=== PATIENT | female | born 1950 | race Caucasian/White ===

== ENCOUNTER → 2016-12-29 | Outpatient (CLI) | payer MEDICARE | END | disposition home or self-care (01) | LOC: GMAB 10:12 | PROVIDERS: ATTEND Family Medicine | DX: I10 Essential (primary) hypertension (principal); E83.52 Hypercalcemia ==

== ENCOUNTER → 2017-02-11 | Outpatient (CLI) | payer MEDICARE ==
--- NOTE | 2017-02-12 11:54 | NM ---
Systolic EXAM DESCRIPTION: Parathyroid Scan CLINICAL HISTORY: 66 years, Female, E21.3 hyperparathyroidism COMPARISON: None. FINDINGS: Patient injected with 20 mCi technetium 99m labeled sestamibi. Anterior images are obtained from area of the lower face to lower chest. On the initial films following radionuclide injection there is normal labeling of salivary thyroid glands. Some cardiac and liver activity noted. On delayed images there is some washout of the thyroid activity without discrete nodule demonstrated. IMPRESSION: No findings suspicious for parathyroid adenoma Electronically signed by: Cody Botello MD 02/12/2017 11:53 AM CDT
== END ==
LOC: NM 07:25
PROVIDERS: ATTEND Family Medicine
DX: E21.3 Hyperparathyroidism, unspecified (principal)

== ENCOUNTER → 2017-02-23 | Outpatient (CLI) | payer MEDICARE ==
--- NOTE | 2017-02-23 14:52 | MAM ---
History: Well woman exam. Date of exam: 02/23/2017 Services provided: Bilateral full field digital screening mammography. CAD, the images were reviewed with R2 computer aided detection. FINDINGS: Glandular tissue is near completely fatty involuted. Comparison with 2008 exam. No dominant mass, architectural distortion or clustered microcalcification. IMPRESSION: Benign exam Recommendation: Routine annual mammography BIRAD CATEGORY: 2 BENIGN Electronically signed by: Nadeen Whitfield MD 02/23/2017 2:52 PM CDT
== END | disposition home or self-care (01) ==
LOC: MAMMO 10:29
PROVIDERS: ATTEND Family Medicine
DX: Z12.31 Encounter for screening mammogram for malignant neoplasm of breast (principal)

== ENCOUNTER → 2017-03-09 | Outpatient (CLI) | payer MEDICARE | END | disposition home or self-care (01) | LOC: GMAB 09:09 | PROVIDERS: ATTEND Family Medicine | DX: E21.3 Hyperparathyroidism, unspecified (principal) ==

== ENCOUNTER → 2018-01-04 | Outpatient (CLI) | payer MEDICARE | LOC: GMAB 10:35 | PROVIDERS: ATTEND Family Medicine | DX: I10 Essential (primary) hypertension (principal) ==

== ENCOUNTER → 2018-09-14 | Outpatient (CLI) | payer MEDICARE | LOC: GMAE 11:01 | PROVIDERS: ATTEND Family Medicine | DX: E61.2 Magnesium deficiency (principal) ==

== ENCOUNTER → 2019-01-11 | Outpatient (CLI) | payer MEDICARE | LOC: GMAE 11:03 | PROVIDERS: ATTEND Family Medicine | DX: I10 Essential (primary) hypertension (principal) ==

== ENCOUNTER → 2019-09-15 | Outpatient (CLI) | payer MEDICARE | LOC: GMAF 19:38 | PROVIDERS: ATTEND Nurse Practitioner Family | DX: N39.0 Urinary tract infection, site not specified (principal); M54.5 Low back pain ==

== ENCOUNTER → 2020-01-24 | Outpatient (CLI) | payer MEDICARE | LOC: GMAE 11:38 | PROVIDERS: ATTEND Family Medicine | DX: E21.3 Hyperparathyroidism, unspecified (principal); E11.9 Type 2 diabetes mellitus without complications; I10 Essential (primary) hypertension ==

== ENCOUNTER 2020-02-18 17:04 | Emergency (ER) | payer MEDICARE ==
[2020-02-18] MEDS ORDERED: SULFA/TRIMETH 800/160 (DS) TAB 1 EA TAB PO ONE (17:15)
--- NOTE | 2020-02-18 17:17 | ED.PDOC ---
History of Present Illness - General Chief Complaint: Upper Extremity Injury Time Seen by Provider: 02/18/20 17:11 Source: patient Exam Limitations: no limitations - History of Present Illness Initial Comments: The patient is a 69-year-old female presents emergency room secondary to having obtained a skin tear to the dorsal aspect of the second digit over the first phalanx of the left hand yesterday by accidentally hitting it on a door jam. The patient has put a Band-Aid on it and the skin flap has stayed in place. No limitation of motion and no change in sensation. No deformity. Timing/Duration: 24 hours Severity: mild Improving Factors: nothing Worsening Factors: nothing Associated Symptoms: denies symptoms Allergies/Adverse Reactions: Allergies NO KNOWN ALLERGY Allergy (Verified 10/13/12 13:33) Home Medications: Ambulatory Orders Sulfa/Trimeth 800/160 (Ds) Tab [Bactrim DS Tab] 1 ea PO DAILY #5 tab 02/18/20 Review of Systems - Review of Systems Constitutional: States: no symptoms reported EENTM: States: no symptoms reported Respiratory: States: no symptoms reported Cardiology: States: no symptoms reported Gastrointestinal/Abdominal: States: no symptoms reported Genitourinary: States: no symptoms reported Musculoskeletal: States: no symptoms reported Skin: States: see HPI Neurological: States: no symptoms reported Endocrine: States: no symptoms reported All other Systems: No Change from Baseline Physical Exam - Physical Exam General Appearance: Alert, Comfortable, No apparent distress Eye Exam: bilateral normal Ears, Nose, Throat: hearing grossly normal Respiratory: no respiratory distress, no accessory muscle use Cardiovascular/Chest: normal peripheral pulses, no edema Peripheral Pulses: radial,right: 2+, radial,left: 2+ Rectal Exam: deferred Extremity: normal range of motion, normal capillary refill Neurologic: surgical processor II-XII nml as tested, alert, normal mood/affect, oriented x 3, other - Sensation preserved distally in the finger Skin Exam: normal color, other - The skin tear is U-shaped and the total length of the you is probably 1.2 inches Progress - Progress Progress: 02/18/20 17:17 The patient is a 69-year-old female presented emergency room secondary to a superficial skin tear to the dorsal aspect of the second digit of the left hand that she obtained yesterday. The wound was cleaned and Steri-Strips were applied. The patient was given a dose of Bactrim prophylactically and will be placed on 5 days of Bactrim daily to keep infection off. Steri-Strips will come off on their own. Monitor for any evidence of infection. No evidence of any neurovascular or mechanical compromise. Keep routine follow-up with primary care doctor. maye shaikh [id number] Departure - Departure Clinical Impression: Skin tear of hand without complication Qualifiers: Encounter type: initial encounter Laterality: left Qualified Code(s): S61.412A - Laceration without foreign body of left hand, initial encounter Disposition: Discharge to Home or Self Care Condition: Fair Departure Forms: ED Discharge - Pt. Copy, Patient Portal Self Enrollment Instructions: DI for Hand Injury Diet: regular diet Activity: increase activity as tolerated Referrals: JAYCE WOODRUFF MD [Primary Care Provider] - 1-2 Weeks Prescriptions: Sulfa/Trimeth 800/160 (Ds) Tab [Bactrim DS Tab] 1 ea PO DAILY #5 tab Home Medications: Ambulatory Orders Sulfa/Trimeth 800/160 (Ds) Tab [Bactrim DS Tab] 1 ea PO DAILY #5 tab 02/18/20 Additional Instructions: The patient is a 69-year-old female presented emergency room secondary to a superficial skin tear to the dorsal aspect of the second digit of the left hand that she obtained yesterday. The wound was cleaned and Steri-Strips were applied. The patient was given a dose of Bactrim prophylactically and will be placed on 5 days of Bactrim daily to keep infection off. Steri-Strips will come off on their own. Monitor for any evidence of infection. No evidence of any neurovascular or mechanical compromise. Keep routine follow-up with primary care doctor.
[2020-02-18 17:19] VITALS: O2SAT 99
[2020-02-18] MEDS ORDERED: TETANUS,DIPHTHERIA,PERTUSSIS 1 EA SYG IM ONE (17:20)
[2020-02-18 17:57] VITALS: BP 106/70; TEMP 96.9
== END 2020-02-18 17:58 | disposition home or self-care (01) ==
LOC: ER 17:04
DX: S61.412A Laceration without foreign body of left hand, initial encounter (principal); W22.8XXA Striking against or struck by other objects, initial encounter; Y92.9 Unspecified place or not applicable

== ENCOUNTER → 2020-05-17 | Outpatient (CLI) | payer MEDICARE ==
--- NOTE | 2020-05-17 13:04 | RAD ---
EXAM DESCRIPTION: Shoulder,Right 2 or More Views CLINICAL HISTORY: PAIN IN RIGHT COMPARISON: None Available. TECHNIQUE: Four x-ray views of the right shoulder. FINDINGS: There is adequate internal and external rotation. Normal glenohumeral alignment on transverse scapular Y view. Normal glenohumeral alignment on transaxillary view. There is no fracture or dislocation. Advanced degenerative arthrosis of the glenohumeral joint with large osteophyte of the medial humeral head neck junction. Medial humeral head is flattened with sclerosis and subchondral cyst formation. Sclerosis with erosion of the glenoid surface. No focal bone lesion. IMPRESSION: Advanced degenerative osteoarthrosis of the right shoulder. Electronically signed by: Dominick Uriarte MD 05/17/2020 1:02 PM CDT
--- NOTE | 2020-05-17 13:05 | RAD ---
EXAM DESCRIPTION: Shoulder x-ray Left 4 Views CLINICAL HISTORY: PAIN IN LEFT SHOULDER COMPARISON: None Available. TECHNIQUE: Four x-ray views of the left shoulder. FINDINGS: There is limited internal and external rotation. Normal glenohumeral alignment on transscapular Y view and transaxillary view There is no fracture or dislocation. Narrowed AC joint. Advanced degenerative osteoarthrosis with eroded appearance of the glenoid surface with sclerosis and subchondral cyst formation and marginal osteophyte formation. Flattened medial left humeral head with subchondral sclerosis and irregular surface with prominent spur at the left humeral head neck junction. No focal bone lesion. IMPRESSION: Advanced degenerative osteoarthrosis of the left shoulder. Electronically signed by: Dominick Uriarte MD 05/17/2020 1:03 PM CDT
== END ==
LOC: RAD 07:47
PROVIDERS: ATTEND Orthopaedic Surgery
DX: M19.011 Primary osteoarthritis, right shoulder (principal); M19.012 Primary osteoarthritis, left shoulder

== ENCOUNTER → 2020-05-21 | Outpatient (CLI) | payer MEDICARE ==
--- NOTE | 2020-05-21 20:17 | CT ---
EXAM DESCRIPTION: Upper Extremity CLINICAL HISTORY: 69 years Female, LOCALIZED PRIMARY OSTEOARTHRITIS OF THE SHOULDER REGION RIGHT TECHNIQUE: This exam was performed according to our departmental dose-optimization program, which includes automated exposure control, adjustment of the mA and/or kV according to patient size and/or use of iterative reconstruction technique. COMPARISON: May 17, 2020 FINDINGS: Calcified granulomas in the right lung. No suspicious pulmonary nodule or focal consolidation. The mediastinum is unremarkable. No axillary adenopathy. No suspicious mass or fluid collection. Moderate to severe acromioclavicular osteoarthritis. Severe glenohumeral osteoarthritis with obliteration of the joint space, subchondral sclerosis and cyst formation. Bulky inferiorly projecting humeral head osteophytes. Subcortical cysts in the posterolateral humeral head No acute fracture or dislocation. No focal soft tissue swelling. Moderate glenohumeral joint effusion. Mild fatty atrophy of the infraspinatus and subscapularis. IMPRESSION: Advanced degenerative changes in the right shoulder. No acute osseous abnormality. Electronically signed by: Torsten Mendez MD 05/21/2020 6:10 PM CDT
== END ==
LOC: CT 11:01
PROVIDERS: ATTEND Orthopaedic Surgery
DX: M19.011 Primary osteoarthritis, right shoulder (principal)

== ENCOUNTER → 2020-06-18 | Outpatient (CLI) | payer MEDICARE | LOC: LAB 09:49 | PROVIDERS: ATTEND Orthopaedic Surgery | DX: Z22.321 Carrier or suspected carrier of Methicillin susceptible Staphylococcus aureus (principal) ==

== ENCOUNTER 2020-07-16 05:18 | Inpatient (IN) | payer MEDICARE ==
[2020-07-16] MEDS ORDERED: SODIUM CHLORIDE 0.9% 100ML 100 ML IVPB ONE (05:45)
[2020-07-16] MEDS ORDERED: SODIUM CHL 0.9% 100ML MINI-BAG 100 ML IVPB ONE (05:45)
[2020-07-16] MEDS ORDERED: SODIUM CHLORIDE 0.9% 250ML 250 ML ONE (05:45)
[2020-07-16] MEDS ORDERED: LACTATED RINGERS 1,000 ML ONE ×2 (05:46→10:02)
[2020-07-16] MEDS ORDERED: TRANEXAMIC ACID 1,000 MG/10 ML VIAL ONE (05:46)
[2020-07-16] MEDS ORDERED: VANCOMYCIN HCL INJ 1,000 MG VIAL IVPB ONE ×2 (05:46→06:50)
[2020-07-16] MEDS ORDERED: SODIUM CHLORIDE 0.9% (FLUSH) 10 ML SYG ONE (05:46)
[2020-07-16] MEDS ORDERED: ceFAZolin SODIUM 1 GM VIAL ONE (05:46)
[2020-07-16] MEDS ORDERED: CLINDAMYCIN IV 900MG 50 ML IVPB ONE (06:26)
[2020-07-16] MEDS ORDERED: fentaNYL CITRATE INJ 50 MCG/ML 2 ML AMP ONE (06:30)
[2020-07-16] MEDS ORDERED: ROCURONIUM BROMIDE 10 MG/ML VIAL ONE (06:30)
[2020-07-16] MEDS ORDERED: BUPIVACAINE LIPOSOME 13.3 MG/ML VIAL INJ ONE (06:30)
[2020-07-16] MEDS ORDERED: FAMOTIDINE INJ 10 MG/ML VIAL IV ONE (06:30)
[2020-07-16] MEDS ORDERED: MIDAZOLAM INJ 5 MG/5 ML VIAL ONE (06:30)
[2020-07-16] MEDS ORDERED: KETAMINE HCL 100 MG/ML VIAL ONE (06:31)
[2020-07-16] MEDS ORDERED: TRANEXAMIC ACID 1,000 MG/10 ML VIAL IV ONE (06:39)
[2020-07-16] MEDS ORDERED: LACTATED RINGERS 1,000 ML IVS ONE (06:39)
[2020-07-16] MEDS ORDERED: PROPOFOL 200 MG/20 ML VIAL IV ONE (07:00)
[2020-07-16] MEDS ORDERED: DEXAMETHASONE INJ 10 MG/ML VIAL ONE (07:00)
[2020-07-16] MEDS ORDERED: LIDOCAINE 1% 10 ML VIAL INJ ONE (07:00)
[2020-07-16] MEDS: BUPIVACAINE LIPOSOME 13.3 MG/ML VIAL INJ ONE ×2 (07:49→09:25)
[2020-07-16] MEDS: ceFAZolin SODIUM 1 GM VIAL ONE ×2 (07:50→09:20)
[2020-07-16] MEDS: VANCOMYCIN HCL INJ 1,000 MG VIAL IVPB ONE ×3 (07:50→09:20)
[2020-07-16] MEDS: BUPIVACAINE 0.5% 30 ML VIAL INJ ONE ×2 (07:50→09:25)
[2020-07-16] MEDS ORDERED: CADD ADMIN SET 1 EA PKG INJ ONE (09:46)
[2020-07-16] MEDS ORDERED: MORPHINE PCA 1 MG/ML 100 ML BAG IVPB ONE ×2 (09:46→10:05)
[2020-07-16] MEDS ORDERED: MORPHINE SULFATE INJ 10 MG/ML VIAL IV PRN (09:49)
[2020-07-16] MEDS ORDERED: ONDANSETRON INJ 4 MG/2 ML VIAL IV PRN (09:49)
[2020-07-16] MEDS ORDERED: ACETAMINOPHEN 325 MG TAB PO PRN (09:49)
[2020-07-16] MEDS ORDERED: MAGNESIUM HYDROXIDE 30 ML UD PO PRN (09:49)
[2020-07-16] MEDS ORDERED: DEX 5% W/NACL 0.45% 1000ML 1,000 ML IVS PRN (09:49)
[2020-07-16] MEDS ORDERED: HYDROcodone 5MG/APAP 325MG 1 EA TAB PO PRN (09:49)
[2020-07-16] MEDS ORDERED: ALUMINUM & MAGNESIUM HYDROXIDE 30 ML UD PO PRN (09:49)
[2020-07-16] MEDS ORDERED: SODIUM CHLORIDE 0.9% (FLUSH) 10 ML SYG IV PRN (09:49)
[2020-07-16] MEDS ORDERED: PROMETHAZINE HCL INJ 12.5 MG in SODIUM CHLORIDE 0.9% 50ML 50 ML IVPB PRN (09:49)
[2020-07-16] MEDS ORDERED: traMADol HCL 50 MG TAB PO PRN (09:49)
[2020-07-16] MEDS ORDERED: TEMAZEPAM 15 MG CAP PO PRN (09:49)
[2020-07-16] MEDS ORDERED: MORPHINE SULFATE INJ 10 MG/ML VIAL IM PRN (09:49)
[2020-07-16] MEDS ORDERED: BISACODYL SUPPOSITORY 10 MG PR PRN (09:49)
[2020-07-16] MEDS ORDERED: BENZOCAINE-MENTH LOZ (CEPACOL) 1 EA LOZ MT PRN (09:49)
[2020-07-16] MEDS ORDERED: CYCLOBENZAPRINE HCL 10 MG TAB PO PRN (09:49)
[2020-07-16] MEDS ORDERED: ACETAMINOPHEN 500 MG TAB PO PRN (09:49)
[2020-07-16] MEDS ORDERED: PROMETHAZINE HCL INJ 25 MG in SODIUM CHLORIDE 0.9% 50ML 50 ML IVPB PRN (09:49)
[2020-07-16] MEDS ORDERED: TRANEXAMIC ACID INJ 1,000 MG in SODIUM CHLORIDE 0.9% 100ML 100 ML IVPB ONE (09:49)
[2020-07-16] MEDS ORDERED: ZOLPIDEM TARTRATE 5 MG TAB PO PRN (09:49)
[2020-07-16] MEDS ORDERED: NALOXONE HCL INJ 0.4 MG/ML VIAL IV PRN (09:49)
[2020-07-16] MEDS ORDERED: MORPHINE PCA 1 MG/ML 100 ML BAG IVPB SCH (10:00)
[2020-07-16] MEDS ORDERED: IV SET AND CAP CHANGE INJ INJ SCH (10:00)
[2020-07-16] MEDS: CLINDAMYCIN INJ (VIAL) 300 MG in SODIUM CHLORIDE 0.9% 50ML 50 ML IVPB SCH ×2 (15:23→21:56)
--- NOTE | 2020-07-16 17:08 | CONS ---
SUPERVISING PHYSICIAN: Johnnie Mckinney M.D. DATE OF CONSULTATION: 07/16/20 REASON FOR CONSULTATION: Medical management. HISTORY OF PRESENT ILLNESS: This is a 70 year-old female who has been seen by Dr. Vidales due to right shoulder pain. It is constantly aching over the past couple of years. She has gotten cortisone injections which have not really helped. She has been offered surgical intervention and accepted, therefore today underwent a right shoulder reverse arthroplasty and there were no intraoperative complications. She came to the Medical/Surgical Unit in stable condition. Currently she is drowsy from anesthesia but no significant complaints of pain. PAST MEDICAL HISTORY: 1. Seasonal allergies. 2. Hypertension. 3. Diabetes mellitus type 2. PAST SURGICAL HISTORY: 1. Parathyroidectomy. 2. Bilateral tubal ligation. CURRENT MEDICATIONS: Please see Med. Rec. list once it is verified in the computer. ALLERGIES: NO KNOWN DRUG ALLERGIES. FAMILY HISTORY: Father who is . Mother who is . Her cause of was aneurysm. SOCIAL HISTORY: Smokes 1 pack per day. Nondrinker. No illicit drugs. REVIEW OF SYSTEMS: Other than right shoulder prior to surgery is negative. PHYSICAL EXAMINATION: VITAL SIGNS: Blood pressure 115/74, heart rate 85, respiratory rate 18, temperature 98.4. Oxygen saturation 94%. GENERAL: This is a 70 year-old female in no active distress at this time. NEUROLOGIC: This is a little bit drowsy from surgery, but otherwise follows commands. No focal deficits. CHEST: Lungs are clear to auscultation bilaterally. CARDIOVASCULAR: Regular rate and rhythm. Normal S1 and S2. ABDOMEN: Soft. Positive bowel sounds. EXTREMITIES: Lower extremities with no edema. Right shoulder is in a dressing. IMPRESSION: 1. Osteoarthritis of the right shoulder and rotator cuff syndrome status post right shoulder reverse arthroplasty. Postoperative day #0. 2. Diabetes mellitus. 3. Hypertension. 4. Hyperlipidemia. PLAN: The patient will postoperatively be monitored in the Medical/Surgical Unit. We will provide pain control as well as postoperative physical therapy. Anticipate she will go home in 2 days post surgery if there are no complications. #[id number] [facility]
[2020-07-16] MEDS: VANCOMYCIN HCL INJ 1,000 MG in SODIUM CHLORIDE 0.9% 250ML 250 ML IVPB SCH (17:53)
[2020-07-16] MEDS ORDERED: LORATADINE 10 MG TAB PO ONE (19:16)
[2020-07-16] MEDS ORDERED: DICYCLOMINE HCL 20 MG TAB ONE (19:16)
[2020-07-16] MEDS ORDERED: DOCUSATE CALCIUM 240 MG CAP ONE (19:16)
[2020-07-16] MEDS ORDERED: ATORVASTATIN 20 MG TAB PO ONE (19:17)
[2020-07-16] MEDS ORDERED: traZODone HCL 50 MG TAB ONE (19:17)
[2020-07-16] MEDS ORDERED: CELECOXIB 100 MG CAP ONE (19:17)
[2020-07-16] MEDS ORDERED: ENOXAPARIN SODIUM 30 MG/0.3 ML SYG SUBCU ONE (19:19)
[2020-07-16] MEDS: DICYCLOMINE HCL 20 MG TAB PO SCH (20:14)
[2020-07-16] MEDS: LORATADINE 10 MG TAB PO SCH (20:14)
[2020-07-16] MEDS: DOCUSATE CALCIUM 240 MG CAP PO SCH (20:14)
[2020-07-16] MEDS: ATORVASTATIN 20 MG TAB PO SCH (20:14)
[2020-07-16] MEDS: CELECOXIB 100 MG CAP PO SCH (20:14)
[2020-07-16] MEDS: traZODone HCL 50 MG TAB PO SCH (20:14)
[2020-07-16] MEDS: GLYCOPYRROLATE 1 MG PO SCH (20:16)
[2020-07-16] MEDS: ENOXAPARIN SODIUM 30 MG/0.3 ML SYG SUBCU SCH (21:56)
[2020-07-17] MEDS: CLINDAMYCIN INJ (VIAL) 300 MG in SODIUM CHLORIDE 0.9% 50ML 50 ML IVPB SCH ×3 (05:55→22:01)
[2020-07-17] MEDS: VANCOMYCIN HCL INJ 1,000 MG in SODIUM CHLORIDE 0.9% 250ML 250 ML IVPB SCH (05:55)
[2020-07-17] MEDS: MAGNESIUM OXIDE 400 MG TAB PO SCH (08:28)
[2020-07-17] MEDS: CELECOXIB 100 MG CAP PO SCH ×2 (08:28→20:39)
[2020-07-17] MEDS: HCTZ 25 MG/TRIAMTERENE 37.5 MG 1 EA CAP PO SCH (08:28)
[2020-07-17] MEDS: LISINOPRIL 10 MG TAB PO SCH (08:28)
[2020-07-17] MEDS: DICYCLOMINE HCL 20 MG TAB PO SCH ×2 (08:28→20:39)
[2020-07-17] MEDS: GLYCOPYRROLATE 1 MG PO SCH ×2 (08:29→20:39)
--- NOTE | 2020-07-17 10:28 | RAD ---
Study: 2 radiographs Right Shoulder Indication: S/P Total Shoulder Arthroplasty Impression: Postsurgical changes of right total shoulder arthroplasty noted without complicating features. Electronically signed by: Nam Merlos MD 07/17/2020 10:26 AM CDT
--- NOTE | 2020-07-17 10:52 | PN ---
SUPERVISING PHYSICIAN: Johnnie Mckinney MD DATE: 07/17/20 SUBJECTIVE: The patient states her pain is fairly controlled. She still complains of a little bit of numbness in the right hand, but is able to feel me touching her. She is tolerating her diet and doing fairly well. OBJECTIVE: VITAL SIGNS: Blood pressure 97/63, heart rate 80, respiratory rate 18, temperature 98.3, oxygen saturation 95%. GENERAL: Ms. Qureshi is a 70-year-old female in no active distress. NEUROLOGIC: The patient is alert. LUNGS: Clear to auscultation bilaterally. CARDIOVASCULAR: Regular rate and rhythm. Normal S1, S2. ABDOMEN: Soft. Positive bowel sounds. EXTREMITIES: Lower extremities with no edema. The right shoulder is still in a sling with dressing in place. ASSESSMENT: 1. Osteoarthritis of the right shoulder as well as rotator cuff syndrome, status post right shoulder reverse arthroplasty. Postoperative day #1. 2. Diabetes mellitus, diet controlled. 3. Hypertension. 4. Hyperlipidemia. PLAN: Continue to monitor in the Medical/Surgical Unit with postoperative pain control as well as physical therapy. Anticipate discharge tomorrow if there are no further complications. #[id number] [facility]
[2020-07-17] MEDS: ENOXAPARIN SODIUM 30 MG/0.3 ML SYG SUBCU SCH ×2 (11:30→22:02)
--- NOTE | 2020-07-17 13:44 | OP ---
DATE OF PROCEDURE: 07/16/20 PREOPERATIVE DIAGNOSIS: 1. Osteoarthritis of the shoulder. 2. Rotator cuff syndrome. POSTOPERATIVE DIAGNOSIS: 1. Osteoarthritis of the shoulder. 2. Rotator cuff syndrome. PROCEDURE: 1. Total shoulder arthroplasty. SURGEON: Karel Vidales MD AUTO RADIATOR MECHANIC: Jaylen Austin CST, SA-C ANESTHESIA: General anesthesia. COMPLICATIONS: None. FINDINGS: 1. Severe osteoarthritis of the shoulder. 2. Rupture of the supraspinatus and superior margin of the subscapularis. INDICATION: Ms. Qureshi has a history of severe shoulder pain that has been refractory to conservative measures. After discussing the risks, benefits and alternatives to operative therapy, she has given informed consent. PROCEDURE: The patient was brought to the Operating Room and placed in the supine position. General anesthesia was induced and the patient's arm and shoulder were sterilely prepped and draped after transitioning into the beach chair position. An incision was made at the deltopectoral interval and dissection was carried down to the cephalic vein. The cephalic vein was protected and retractor was placed under the deltoid. The subscapularis was elevated taking care to avoid direct contact with the axillary nerve. The dissection remained intracapsular. The proximal humerus was exposed and an extramedullary cutting guide was pinned to the proximal humerus. Following that, the proximal humeral cut was made. Sequential reaming followed by broaching was performed and size 14 broach was left in place. The glenoid was exposed and the glenoid labrum was removed. The starting pilot can router hole was made approximately 12 mm from the inferior edge of the glenoid. It was slightly angled cephalad. Sequential reaming was used to achieve a bleeding bony bed on the inferior aspect. A baseplate was applied with a center compression screw followed by four peripheral locking screws. After that, the 32 mm glenosphere was placed. The humeral cup was placed and the shoulder was reduced. It was taken through a range of motion. There was no evidence of impingement. There was no instability noted. The shoulder was dislocated and the trial components were removed. The shoulder was thoroughly irrigated and the final component impacted. The shoulder was reduced again, taken through a range of motion and there was no impingement or instability. Following that, it was thoroughly irrigated and the deltopectoral interval was reapproximated. The skin was closed with a combination of running and interrupted subcuticular stitches. Sterile dressings were placed. The patient was awoken from anesthesia and taken to the Recovery Room. POSTOPERATIVE PLAN: Ms. Qureshi is going to be admitted to being postoperative physical therapy on postoperative day 1. [facility][id number] [facility]
[2020-07-17] MEDS: traZODone HCL 50 MG TAB PO SCH (20:38)
[2020-07-17] MEDS: ATORVASTATIN 20 MG TAB PO SCH (20:39)
[2020-07-17] MEDS: LORATADINE 10 MG TAB PO SCH (20:39)
[2020-07-17] MEDS: SODIUM CHLORIDE 0.9% (FLUSH) 10 ML SYG IV SCH (20:40)
[2020-07-17] MEDS: DOCUSATE CALCIUM 240 MG CAP PO SCH (20:40)
[2020-07-18 04:44] VITALS: TEMP 98.2
[2020-07-18] MEDS: CLINDAMYCIN INJ (VIAL) 300 MG in SODIUM CHLORIDE 0.9% 50ML 50 ML IVPB SCH (05:26)
[2020-07-18] MEDS: DICYCLOMINE HCL 20 MG TAB PO SCH (08:29)
[2020-07-18] MEDS: MAGNESIUM OXIDE 400 MG TAB PO SCH (08:29)
[2020-07-18] MEDS: SODIUM CHLORIDE 0.9% (FLUSH) 10 ML SYG IV SCH (08:29)
[2020-07-18] MEDS: GLYCOPYRROLATE 1 MG PO SCH (08:29)
[2020-07-18] MEDS: HCTZ 25 MG/TRIAMTERENE 37.5 MG 1 EA CAP PO SCH (08:29)
[2020-07-18] MEDS: CELECOXIB 100 MG CAP PO SCH (08:29)
[2020-07-18] MEDS: LISINOPRIL 10 MG TAB PO SCH (08:29)
[2020-07-18 09:30] VITALS: O2SAT 96
[2020-07-18 15:48] VITALS: BP 105/73
--- NOTE | 2020-07-19 13:13 | PN ---
DATE: 07/18/20 SUBJECTIVE: Ms. Qureshi is doing well and is participating in physical therapy without significant pain. OBJECTIVE: Afebrile. Vital signs stable. Wound is clean. There are no signs or symptoms of infection. ASSESSMENT: Status post reverse shoulder arthroplasty. PLAN: She will be discharged today with followup in about 2 weeks. She will begin outpatient physical therapy on 07/19/20. #[id number] [facility]
--- NOTE | 2020-07-19 13:14 | PN ---
DATE: 07/17/20 SUBJECTIVE: Ms. Qureshi is doing well. She still has the effect of her block. OBJECTIVE: Afebrile. Vital signs stable. Dressing is clean, dry and intact. ASSESSMENT: Status post reverse shoulder arthroplasty. PLAN: The plan at this point is to begin her physical therapy for range of motion. #[id number] [facility]
--- NOTE | 2020-07-19 20:26 | DS ---
SUPERVISING PHYSICIAN: Johnnie Mckinney M.D. ADMISSION DIAGNOSIS: 1. Osteoarthritis of the right shoulder and rotator cuff syndrome status post right shoulder reverse arthroplasty. Postoperative day #0. 2. Diabetes mellitus. 3. Hypertension. 4. Hyperlipidemia. DISCHARGE DIAGNOSIS: 1. Osteoarthritis of the right shoulder as well as rotator cuff syndrome, status post right shoulder reverse arthroplasty. Postoperative day #2. 2. Diabetes mellitus, diet controlled. 3. Hypertension. 4. Hyperlipidemia. REASON FOR HOSPITALIZATION: This is a 70 year-old female who has been seen by Dr. Vidales due to right shoulder pain. It is constantly aching over the past couple of years. She has gotten cortisone injections which have not really helped. She has been offered surgical intervention and accepted, therefore today underwent a right shoulder reverse arthroplasty and there were no intraoperative complications. She came to the Medical/Surgical Unit in stable condition. Currently she is drowsy from anesthesia but no significant complaints of pain. LABORATORY STUDIES: Postoperative H&H is 14 and 40.2 respectively. RADIOLOGY: No additional radiographic studies. PROCEDURES: Total shoulder arthroplasty performed by Dr. Karel Vidales. Please see his Operative Note for details. HOSPITAL COURSE: Ms. Qureshi was admitted on 07/16/20 for elective total right shoulder replacement. She had no intraoperative complications. She did well postoperatively and was felt clinically stable enough to discharge to outpatient management. PLAN: Ms. Qureshi was discharged on 07/18/[address] Vidales as scheduled. She was to resume physical therapy as per Dr. Vidales's orders. She was to do wound management as per Dr. Vidales's orders. She had further pain management with Dr. Vidales and his written prescription. Diet was regular diet as tolerated. Condition on discharge was stable and improved. No new medications were prescribed at time of discharge. #[id number] [facility]
== END 2020-07-18 11:15 | disposition home health service (06) | DRG 483 ==
LOC: AMB 05:18 → MS 10:45
PROVIDERS: ADMIT Orthopaedic Surgery; ATTEND Nurse Practitioner Family
PROC: 0RRJ0JZ Replacement of Right Shoulder Joint with Synthetic Substitute, Open Approach (ICD-10-PCS; principal; 2020-07-16 07:04)
DX: M19.011 Primary osteoarthritis, right shoulder (principal); E11.9 Type 2 diabetes mellitus without complications; I10 Essential (primary) hypertension; E78.5 Hyperlipidemia, unspecified; M75.101 Unspecified rotator cuff tear or rupture of right shoulder, not specified as traumatic; J30.2 Other seasonal allergic rhinitis; F17.210 Nicotine dependence, cigarettes, uncomplicated